=== PATIENT | male | born 1980 | race Caucasian/White ===

== ENCOUNTER 2023-10-03 15:22 | Emergency (ER) | payer MEDICAID ==
[~2023-10-03] VITALS: Ht 180.3 cm; Wt 91.0 kg
[2023-10-03 15:25] VITALS: O2SAT 99
[2023-10-03] MEDS: HYDRALAZINE 20MG/ML VIAL IV ONE (16:14)
[2023-10-03 16:35] LABS: BASOPHILS % 0.9 % (0.0-2.0); HEMATOCRIT. 27.1 % (42.0-52.0); HEMOGLOBIN. 9.1 g/dL (14.0-18.0); LYMPHOCYTES % 14.1 % (20.0-50.0); MEAN CORPUSCULAR HEMOGLOBIN 29.9 pg (28.0-32.0); MEAN CORPUSCULAR HGB CONC 33.8 g/dL (31.0-37.0); MEAN CORPUSCULAR VOLUME 88.5 fL (80.0-94.0); MEAN PLATELET VOLUME 8.1 fl (7.4-10.4); MONOCYTES % 10.3 % (2.0-8.0); NEUTROPHILS % 70.7 % (40.0-76.0); PLATELET 111 x1000/uL (130-400); RED BLOOD CELL COUNT 3.06 mill/uL (4.7-6.1); RED CELL DISTRIBUTION WIDTH 14.3 % (11.6-14.6); WHITE BLOOD COUNT 6.2 x1000/uL (4.5-11.0)
[2023-10-03 16:42] LABS: CHLORIDE 96 mEq/L (98-107); POTASSIUM 3.9 mEq/L (3.5-5.1); SODIUM 136 mEq/L (136-145)
[2023-10-03 16:43] LABS: CALCIUM 9.2 mg/dL (8.7-10.4); CARBON DIOXIDE 32 mEq/L (21-32)
[2023-10-03 16:48] LABS: GLUCOSE 108 mg/dL (70-105); UREA NITROGEN BLOOD 39 mg/dL (9-23)
[2023-10-03 16:50] LABS: TROPONIN I HIGH SENSITIVITY 28 ng/L (3.0-53)
[2023-10-03 17:00] LABS: CREATININE 7.7 mg/dL (0.6-1.3)
[2023-10-03] MEDS: ONDANSETRON HCL 4MG/2ML INJ IV ONE (17:20)
[2023-10-03] MEDS: MORPHINE SULFATE 4 MG/ML INJ (FOR IV/IM USE) IV ONE (17:20)
[2023-10-03 18:07] VITALS: TEMP 98
[2023-10-03] MEDS: HYDROCODONE/ACETAMINOPHEN 7.5/325MG TABLET PO ONE (20:41)
[2023-10-03] MEDS: CLONIDINE 0.1MG TABLET PO NR (20:42)
[2023-10-03] MEDS ORDERED: CLONIDINE 0.2MG TABLET PO ONE (20:45)
[2023-10-03 20:58] LABS: TROPONIN I HIGH SENSITIVITY 30 ng/L (3.0-53)
[2023-10-03 21:57] VITALS: BP 159/86; PULSE 78; RESP 14
== END 2023-10-03 22:00 | disposition left against medical advice (07) ==
LOC: ER 15:22 → EDBEDREQ 21:55 → EDBEDREQTM 21:55 → ER 22:00
DX: I16.9 Hypertensive crisis, unspecified (principal); R51.9 Headache, unspecified; I12.0 Hypertensive chronic kidney disease with stage 5 chronic kidney disease or end stage renal disease; E11.22 Type 2 diabetes mellitus with diabetic chronic kidney disease; N18.6 End stage renal disease; Z99.2 Dependence on renal dialysis
CPT/HCPCS: 80048; 83880; 85025; 84484; 36415; 71045; 70450; 93005; 96374; 96375; 99285; J0360; J2405; J2270; Z7610 ×5